=== PATIENT | male | born 1960 | race Caucasian/White ===

== ENCOUNTER 2020-07-07 16:45 | Emergency (ER) | payer BC ==
[~2020-07-07] VITALS: Ht 182.9 cm; Wt 93.0 kg
[2020-07-07 16:45] VITALS: BP_SYST 177
[2020-07-07 19:02] LABS: BASOPHILS % (AUTO) 0.2 % (0.0-2.0); EOSINOPHILS % (AUTO) 0.8 % (0.0-4.0); HEMATOCRIT 32.1 % (36-54); HEMOGLOBIN 10.2 g/dL (14.0-18.0); LYMPHOCYTES # (AUTO) 1.5 K/uL (1.0-5.5); LYMPHOCYTES % (AUTO) 23.8 % (20.5-51.5); MEAN CORPUSCULAR HEMOGLOBIN 18 pg (27-31); MEAN CORPUSCULAR HGB CONC 32 % (32-36); MEAN CORPUSCULAR VOLUME 58 fL (79.0-98.0); MONOCYTES # (AUTO) 0.7 K/uL (0.0-1.0); MONOCYTES % (AUTO) 10.5 % (1.7-9.3); NEUTROPHILS # (AUTO) 4.1 K/uL (1.8-7.7); NEUTROPHILS % (AUTO) 64.7 % (40.0-70.0); PLATELET COUNT (AUTO) 306 K/uL (130-430); RED BLOOD CELL COUNT(AUTO) 5.57 MIL/uL (4.2-6.2); RED CELL DISTRIBUTION WIDTH 15.6 % (9.0-15.0); WHITE BLOOD COUNT (AUTO) 6.4 K/uL (4.8-10.8)
[2020-07-07 19:22] LABS: CALCIUM 8.7 mg/dL (8.4-11.0); CREATININE 0.73 mg/dL (0.55-1.30); POTASSIUM 3.9 mmol/L (3.5-5.1)
[2020-07-07 19:30] LABS: ALBUMIN 4.1 g/dL (3.4-4.8); TOTAL BILIRUBIN 0.9 mg/dL (0.0-1.0)
[2020-07-07 19:43] LABS: BILIRUBIN,URINE NEGATIVE (NEGATIVE); CLARITY/URINE CLEAR (CLEAR); COLOR,URINE YELLOW (YELLOW); GLUCOSE,URINE NEGATIVE (NEGATIVE); KETONES,URINE NEGATIVE (NEGATIVE); LEUKOCYTE ESTERASE ,URINE NEGATIVE (NEGATIVE); NITRITE, URINE NEGATIVE (NEGATIVE); PROTEIN URINE NEGATIVE (NEGATIVE); UROBILINOGEN,URINE 0.2 (0.2-1.0)
[2020-07-07 19:49] LABS: BLOOD, URINE NEGATIVE (NEGATIVE)
[2020-07-07 20:30] VITALS: BP_SYST 158
== END 2020-07-07 20:30 | disposition home or self-care (01) ==
LOC: SED 16:45
DX: R55 Syncope and collapse (principal); T36.8X5A Adverse effect of other systemic antibiotics, initial encounter; Y92.89 Other specified places as the place of occurrence of the external cause
CPT/HCPCS: 36415; 71045; 80053; 81003; 83880; 84484; 85025; 93005; 99285

== ENCOUNTER 2022-06-06 03:18 | Emergency (ER) | payer BC, OTHER ==
[~2022-06-06] VITALS: Ht 182.9 cm; Wt 86.2 kg
[2022-06-06 03:35] VITALS: BP_SYST 140
--- NOTE | 2022-06-06 03:39 | NUR ---
Placed in room 08 . 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 To gown for exam. Side rails up. Report given to ELA RESENDIZ.
--- NOTE | 2022-06-06 03:39 | NUR ---
PT DROVE TO THE ER FR HOME C/O CHESTPAIN, DIZZINESS, N/V HE FELT 4O MINS AGO. PERT PT, HE HAD A STRESSFUL EVENT AT WORK TODAY. PER PT, HE TOOK TUMS OR [place]LANTA OR SOME SERGIO OF ANTACID WHICH WAS EFFECTIVE AND NO LONGER HAS CHEST PAIN, NO LONGER HAS N/V. JUST DIZZINESS NOW BUT DENIES HEADACHE. NKDA PMH: HTN, THALASSEMIA
--- NOTE | 2022-06-06 03:40 | NUR ---
ER Dr. Hyde at bedside examining patient.
--- NOTE | 2022-06-06 03:42 | NUR ---
ER Dr.DELA MARTINEZ at bedside examining patient.
--- NOTE | 2022-06-06 03:46 | NUR ---
Pt bib self from home, assisted in wheelchair to bed 8. Pt A&Ox4, able to make needs known. Pt c/o chest pain and dizziness. Pt states he had a stressful day and thought that could be the reason he was feeling this way. Pt denies pain at this time. Pt denies N/V/D and bloody stools. Pt states he took an antacid thinking he had Reflux. Pt has a hx of HTN. Safety measures in place.
[2022-06-06] MEDS ORDERED: NACL 0.9% 1,000 ML IV ONE (04:00)
[2022-06-06 04:26] LABS: BASOPHILS % (AUTO) 0.3 % (0.0-2.0); EOSINOPHILS # (AUTO) 0.1 K/uL (0.0-0.4); EOSINOPHILS % (AUTO) 2.1 % (0.0-4.0); HEMATOCRIT 33.3 % (36-54); HEMOGLOBIN 10.6 g/dL (14.0-18.0); LYMPHOCYTES # (AUTO) 1.7 K/uL (1.0-5.5); LYMPHOCYTES % (AUTO) 33.8 % (20.5-51.5); MEAN CORPUSCULAR HEMOGLOBIN 18 pg (27-31); MEAN CORPUSCULAR HGB CONC 32 % (32-36); MEAN CORPUSCULAR VOLUME 57 fL (79.0-98.0); MONOCYTES # (AUTO) 0.4 K/uL (0.0-1.0); MONOCYTES % (AUTO) 7.3 % (1.7-9.3); NEUTROPHILS # (AUTO) 2.9 K/uL (1.8-7.7); NEUTROPHILS % (AUTO) 56.5 % (40.0-70.0); PLATELET COUNT (AUTO) 289 K/uL (130-430); RED BLOOD CELL COUNT(AUTO) 5.84 MIL/uL (4.2-6.2); RED CELL DISTRIBUTION WIDTH 16.3 % (9.0-15.0); WHITE BLOOD COUNT (AUTO) 5.1 K/uL (4.8-10.8)
[2022-06-06 04:33] LABS: ANION GAP 8 (5-15); CALCIUM 8.8 mg/dL (8.4-11.0); CHLORIDE 105 mmol/L (98-107); CREATININE 0.75 mg/dL (0.55-1.30); GFR AFRICAN AMERICAN 136 mL/min (>90); GLUCOSE 105 mg/dL (70-99); UREA NITROGEN, BLOOD 21 mg/dL (8-21)
[2022-06-06 04:40] LABS: ALANINE AMINOTRANSFERASE 28 U/L (12-78); ALBUMIN 3.9 g/dL (3.4-4.8); ASPARTATE AMINOTRANSFERASE 16 U/L (10-37); TOTAL BILIRUBIN 0.8 mg/dL (0.0-1.0)
[2022-06-06] MEDS ORDERED: FAMO20TA8 PO (05:00)
[2022-06-06] MEDS ORDERED: MECL-225 PO (05:00)
[2022-06-06 05:12] VITALS: BP_SYST 147
--- NOTE | 2022-06-06 05:12 | NUR ---
Patient given written and verbal discharge instructions and verbalizes understanding. ER Dr Hyde discussed with patient the results and treatment provided. Patient in stable condition. ID arm band removed. IV catheter removed intact and dressing applied, no active bleeding. Rx of Pepcid and Meclizine given. Patient educated on pain management and to follow up with PMD. Pain Scale 0/10. Opportunity for questions provided and answered. Medication side effect fact sheet provided.
== END 2022-06-06 05:12 | disposition home or self-care (01) ==
LOC: SED 03:18
DX: R42 Dizziness and giddiness (principal); I10 Essential (primary) hypertension; Z79.899 Other long term (current) drug therapy
CPT/HCPCS: 99285; 96360; 71045; 80053; 85025; 86886; 86900; 86901; 84484; 36415; 93005; J7030

== ENCOUNTER 2023-04-01 03:29 | Emergency (ER) | payer OTHER ==
[~2023-04-01] VITALS: Ht 182.9 cm; Wt 88.5 kg
[~2023-04-01 03:29] MED LIST: FAMO20TA8 PO; MECL-225 PO
[2023-04-01 03:42] VITALS: BP_SYST 124; PULSE 60; RESP 18; TEMP 97.7; O2SAT 99
== END 2023-04-01 04:56 | disposition left against medical advice (07) ==
LOC: SED 03:29
DX: R07.9 Chest pain, unspecified (principal); I10 Essential (primary) hypertension; Z79.899 Other long term (current) drug therapy
CPT/HCPCS: 71045; 93005; 99283